=== PATIENT | female | born 1955 | race Caucasian/White ===

== ENCOUNTER 2017-10-28 17:47 | Emergency (ER) | payer BC ==
[~2017-10-28] VITALS: Ht 160 cm; Wt 58.0 kg
[~2017-10-28 17:47] MED LIST: ZYRTEC
[2017-10-28] MEDS ORDERED: ONDANSETRON 4MG ODT PO ONE (18:45)
[2017-10-28] MEDS ORDERED: IBUPROFEN 800MG TABLET PO ONE (18:45)
[2017-10-28 19:25] VITALS: BP 119/75
== END 2017-10-28 19:50 | disposition home or self-care (01) ==
LOC: ER 18:18
DX: J06.9 Acute upper respiratory infection, unspecified (principal); E78.00 Pure hypercholesterolemia, unspecified; Z88.2 Allergy status to sulfonamides; Z90.89 Acquired absence of other organs
CPT/HCPCS: 71045; 87804; 99285; Q0162